=== PATIENT | female | born 1950 | race Caucasian/White ===

== ENCOUNTER → 2016-04-05 | Outpatient (CLI) | payer BC, OTHER ==
[~2016-04-05] MED LIST: ACYCLOVIR 400400 MG PO; AMBIEN 5 MG TABL5 M1 PO; APAP500 PO; ASPIR 8181 MG PO; ATIVAN0.5 MG PO; CELEBREX 200 M200 M1 PO; CELEBREX PO; COMBO PO; CYMBALTA60 MG PO; DEXAMETHASONE 44 M1 PO; ENOXAPARIN150 MG/11 SUBQ; FARYDAK10 MG PO; FENTANYL; FLEXERIL PO; FLONASE 0.05%50 MCG; HYDROCODON-ACE1 EAC5 PO; LASIX 20 MG TAB20 MG PO; LOPRESSOR25 PO; NEURONTIN 300300 M1 PO; ONDANSETRON HCL4 M2 PO; POTASSIUM20 PO; PROBIOTIC1 EAC1 PO; QVAR8.7 G1; VELCADE3.5 MG; VENTOLIN HFA INH8 GM INH; VITAMIN B-6100 MG PO; VITAMIN D2000 UNIT PO; ZYRTEC10 MG PO; [UNRECOGNIZED DRUG - REMARK] INTRADERM; iron
== END ==
LOC: RAD 12:51
DX: R05 Cough (principal)

== ENCOUNTER → 2016-12-04 | Outpatient (CLI) | payer OTHER ==
--- NOTE | ~2016-12-04 | SLE ---
[facility] [address] [place] [address] POLYSOMNOGRAPHY STUDY Name: MELINDA GARRETT Room #: [facility]#: [id number] Admission: 12/04/16 Attend Phys: Leyla Taylor MD Discharge: Date of : 51 Report #: [id number] THIS REPORT FOR: //name// CC: Leyla Burrell DATE OF SERVICE: 12/04/2016 This is a 66-year-old, height 5 feet 3 inches, weight 205 pounds. Usually goes to bed at 10:30-11:00, gets out of bed 7:30 to 9:00, does not feel refreshed. Describes herself as a restless sleeper. Positive snoring on back. COMMENTS: Total sleep time 301 minutes, sleep efficiency 73%. Sleep latency 32 minutes, REM latency 101 minutes. SLEEP STAGE: 1-4%, 2-85%, 3-1%, REM-10%. Central apnea 9, mixed apnea 0, obstructive apnea 1, hypopnea 5. Apnea-hypopnea index 3 events per sleep hour. Non-REM 3.1, REM 2.1 events per sleep hour. Respiratory effort related arousal 0 events per sleep hour. Supine AHI 3.6, left lateral 2.4, right lateral 1.8 events per sleep hour. Periodic limb movement with arousal index 1.8 events per sleep hour. Low oxygen saturation 77%, only spending 1.5 minutes less than 90%. IMPRESSION: 1. Apnea-hypopnea index 3 events per sleep hour with minimal nocturnal desaturation. 2. Snoring noted. 3. Daytime somnolence. 4. Periodic limb movement with arousal index of 1.8 events per sleep hour. 5. Premature ventricular contractions noted. SUGGESTIONS: 1. In addition to specific therapy, the patient should be cautioned regarding driving or operating dangerous machinery unless fully alert. The patient should be cautioned regarding the use of respiratory depressants. 2. Weight loss is recommended. 3. Further discussion regarding daytime somnolence is recommended. 4. Sleep hygiene measures are recommended. 5. If signs and symptoms not improved with therapy, further evaluation [facility] [address] [address] POLYSOMNOGRAPHY STUDY Name: MELINDA GARRETT Room #: [facility]#: [id number] Admission: 12/04/16 Attend Phys: Leyla Taylor MD Discharge: Date of : 51 Report #: [id number] recommended. 6. Please consider evaluation for arrhythmias. By: 58 23 Leyla Taylor MD /nt
== END ==
LOC: SLEEPLAB 08:58
DX: G47.33 Obstructive sleep apnea (adult) (pediatric) (principal)

== ENCOUNTER → 2017-02-01 | Outpatient (CLI) | payer OTHER | LOC: MRI 09:05 | DX: C90.02 Multiple myeloma in relapse (principal); M75.102 Unspecified rotator cuff tear or rupture of left shoulder, not specified as traumatic ==

== ENCOUNTER 2017-06-12 10:11 | Inpatient (IN) | payer OTHER ==
[~2017-06-12] VITALS: Ht 160 cm; Wt 93.9 kg
--- NOTE | ~2017-06-12 | HC ---
[facility] [place] [address] CONSULTATION Name: GERRYMELINDA Flip Room #: 363-P [facility] IN M.R.#: [id number] Admission: 06/12/17 Attend Phys: Tone Hunt DO Discharge: Date of : 51 Report #: [id number] THIS REPORT FOR: //name// CC: Sirisha Hunt DATE OF SERVICE: 06/13/2017 HISTORY OF PRESENT ILLNESS: The patient is a 66-year-old white female, admitted with increased shortness of breath. She has a prior history of myeloma, on active treatment with oral chemo and stem cell treatment. She was diagnosed with bilateral apical pneumonia. She has had acute respiratory failure with acute exacerbation of chronic obstructive pulmonary disease. She was noted to have some arthralgias and it sounds like these symptoms are improved. She had pain involving both lower extremities, her hands, and she thinks that it is improved in that regard. She notes she is very short of breath with limited activity. We are seeing her in rehabilitation medicine consultation. PAST MEDICAL HISTORY: Includes the myeloma, she has had prior pulmonary emboli. She has a history of fibromyalgia. She has chronic cancer related pain. The arthralgias are noted to be improved and she has a normal uric acid . MEDICATIONS: Please see the full medication listing. ALLERGIES: PENICILLIN G, SULFAMETHOXAZOLE, AND TRIMETHOPRIM. HABITS: No history of tobacco or alcohol abuse. 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 There is a daughter who lives in the area and works, but could be involved. REVIEW OF SYSTEMS: Did not offer any current complaints of chest pain. No abdominal discomfort. She does get short of breath with limited activity. She notes that the extremity pain is improved as noted above. PHYSICAL EXAMINATION: GENERAL: A 66-year-old overweight, pleasant white female, in no obvious distress. Alert, oriented, good historian. VITAL SIGNS: Temperature 97.7, pulse 84, respirations 22, blood pressure 154/74. NEUROLOGIC: Facies are symmetric. Functional range of motion of both upper extremities with strength of grade 4-/5. DTRs are trace to 1. Lower extremities, no focal calf swelling. No obvious inflammation of her knees or ankles. Tone appeared to be intact with strength of grade 4-/5. Tone is intact. [address] [address] CONSULTATION Name: MELINDA GARRETT Flip Room #: 363-P [facility] IN .R.#: [id number] Admission: 06/12/17 Attend Phys: Tone Hunt DO Discharge: Date of : 51 Report #: [id number] ASSESSMENT: A 66-year-old white female with following problems: 1. Acute exacerbation of chronic obstructive pulmonary disease, question healthcare-associated pneumonia. 2. Acute respiratory failure. 3. Arthralgias and arthritic complaints, improved (she is on dexamethasone). 4. Multiple myeloma. 5. History of pulmonary embolism. 6. History of fibromyalgia. 7. Chronic cancer related pain. PLAN: Therapy evaluations are underway. We will be glad to follow along with you regarding her rehab therapy needs. By: [id number] Michel Gracia MD /PMT
--- NOTE | ~2017-06-12 | HC ---
[facility] [place] [address] CONSULTATION Name: MELINDA GARRETT Room #: 363-P ADM IN M.R.#: [id number] Admission: 06/12/17 Attend Phys: Tone Hunt DO Discharge: Date of : 51 Report #: [id number] THIS REPORT FOR: //name// CC: Alf Hunt DATE OF SERVICE: 06/12/2017 ATTENDING PHYSICIAN: Tone Hunt DO. REASON FOR CONSULTATION: Possible pneumonia. HISTORY OF PRESENT ILLNESS: The patient is a 66-year-old white woman being treated for multiple myeloma. Apparently, chemotherapy has been changed on many occasions because of failure to control disease. The patient also recently hospitalized at [facility] for pulmonary embolism for which she is taking Pradaxa. The patient is mainly complaining of feeling short-winded and coughing up some yellowish expectoration. Denies having had fevers. Her other complaint is generalized joint aches and pains, particularly right knee, ankles and feet. The patient has a history of obstructive sleep apnea, but her latest studies was said to be fairly normal and she no longer requires using a home BiPAP. PAST MEDICAL HISTORY: Multiple myeloma, on oral chemotherapy. She has also received stem cell transplantation in 2009. History of gastroesophageal reflux. Arthritis of the neck and knees. Bilateral flat feet and pains on feet. C-sections x 3. Arthroscopic examination both knees. Right shoulder arthroscopy. Fibromyalgia. Previous episode of pneumonia requiring intubation for 9 days. Chronic fatigue. Anemia requiring frequent transfusions. DRUG ALLERGIES: SULFAMETHOXAZOLE, TRIMETHOPRIM, PENICILLIN AND WITH PENICILLIN, SHE EXPERIENCES RASH AND DIFFICULTY IN BREATHING. MEDICATIONS: At home, she is on treatment with fentanyl, dabigatran 150 mg p.o. b.i.d., which I believe she is not taking as she should. Ropinirole, pomalidomide, Cytoxan, dexamethasone, cetirizine, cyclobenzaprine, duloxetine, cholecalciferol, acetaminophen p.r.n., acyclovir chronic suppression, Lasix, gabapentin, hydrocodone, potassium chloride supplementation, pyridoxine, celecoxib, metoprolol and she was advised to stop the allopurinol. Here at the hospital, she has received treatment with Levaquin 750 mg IV x 1. She is getting vancomycin 1 g IV every 8 hours as well as aztreonam 1 g IV every 6 hours. She is also on treatment with dexamethasone 40 mg weekly, ropinirole, metoprolol, celecoxib, pyridoxine, Lactobacillus acidophilus, fluconazole propionate, KCl, cholecalciferol, dabigatran 150 mg b.i.d., zolpidem 5 [place] [address] CONSULTATION Name: MELINDA GARRETT Room #: 363-P [facility] IN M.R.#: [id number] Admission: 06/12/17 Attend Phys: Tone Hunt DO Discharge: Date of : 51 Report #: [id number] bedtime, acyclovir 400 mg b.i.d., duloxetine p.r.n., ondansetron p.r.n., hydrocodone, gabapentin, cyclobenzaprine, loratadine. 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 REVIEW OF SYSTEMS: As above. PHYSICAL EXAMINATION: GENERAL: Obese woman, dyspneic, afebrile, temperature 97.8, pulse 100, respirations 19, BP 160/82, O2 saturation 99% on 2 liters oxygen nasal cannula. HEENMT: Within range. NECK: Supple, no thyromegaly. BREASTS: Deferred. LUNGS: Rhonchi, crackles both lung wu. HEART: S1, S2. No gallop or murmur. CHEST: Revealed right infraclavicular Port-A-Cath. ABDOMEN: Soft. No masses or megaly. PELVIC AND RECTAL: Deferred. EXTREMITIES: Reveal small effusion right knee and some swelling of the proximal interphalangeal joints, right hand. NEUROLOGIC: Grossly within normal limits. LABORATORY DATA: Sodium 137, potassium 3.7, BUN 17, creatinine 0.7, calcium 8.3, albumin 2.5, total protein 6.8. NT-proBNP 476. Protime 10.4. D-dimer is 2.62. WBC 7400, hemoglobin 11.8 g/dL, platelets are 167,000. The white blood cell count differential revealed 92% segmented neutrophils. Blood cultures were obtained and obviously they are pending at the time of this dictation. Nasopharyngeal smear negative for influenza A and B. RADIOLOGY EVALUATION: Chest x-ray revealed faint nodular lesions both lungs, question inflammatory process. CT scan of the chest PE protocol revealed no evidence of pulmonary embolism, chronic lung changes, linear atelectasis, infiltrate lower lungs, though the radiologist report in the upper lung wu. There are multiple bony lesions in the vertebral bodies as well as broken ribs compatible with known multiple myeloma. ASSESSMENT: 1. Possible healthcare-associated pneumonia -- bronchitis. 2. Multiple myeloma, on chemotherapy. 3. Immunosuppressed host. 4. Hypoalbuminemia. 5. Arthralgias and arthritis, right knee. Rule out gout. 6. History of cholecystectomy, hysterectomy, bilateral knee arthroscopic examination. SUGGESTIONS: We will continue treatment with vancomycin a gram IV every 8 hours [facility] [address] [address] CONSULTATION Name: MELINDA GARRETT Room #: 363-P ADM IN M.R.#: [id number] Admission: 06/12/17 Attend Phys: Tone Hunt DO Discharge: Date of : 51 Report #: [id number] in view of penicillin allergy and Levaquin 750 mg IV daily. Obtain uric acid, ESR, CRP and procalcitonin. Sputum culture is in order. If the uric acid elevated, then the suspicions of acute gout may have to be entertained. Dr. Hunt, thank you for requesting my suggestions in the care of your patient. <ELECTRONICALLY SIGNED> By: Balta Dela Cruz MD 06/13/17 0952 1618 25 Balta Dela Cruz MD /nt
--- NOTE | ~2017-06-12 | HC ---
[facility] [place] [address] CONSULTATION Name: GERRYMELINDA Flip Room #: 363-P ADM IN M.R.#: [id number] Admission: 06/12/17 Attend Phys: Tone Hunt DO Discharge: Date of : 51 Report #: [id number] THIS REPORT FOR: //name// CC: Sirisha Anne MD DATE OF SERVICE: 06/12/2017 REFERRING PHYSICIAN: Dr. Hunt. REASON FOR REFERRAL: Dyspnea. HISTORY OF PRESENT ILLNESS: The patient is a 66-year-old white female with multiple myeloma, presents at Emergency Room with dyspnea. A pulmonary consultation was requested. The patient states that she was diagnosed with multiple myeloma for about 8 years. She has been followed by the Oncology Department at [facility]. She states that in the past, she has been diagnosed with respiratory problems. She has been treated for pneumonia in the past. She was in her usual state of health until 1 day prior to presentation, she started developing increasing dyspnea. She otherwise denies any recent febrile illness, chest pain, productive cough or hemoptysis. She has had several diagnostic workups while in the ER. A CT chest angiogram was performed. This revealed no evidence of pulmonary embolus; however, patchy bilateral linear infiltrates are seen, suggestive of atelectasis. There are larger areas suggests possible interstitial infiltrates. No pleural effusion is seen or pulmonary fibrosis. PAST MEDICAL HISTORY: Multiple myeloma diagnosed approximately 9 years ago, she has undergone stem cell transplantation in 2009, been followed at [facility]. She has a history of gastroesophageal reflux disease, fibromyalgia, degenerative joint disease with recent right foot surgery, history of pneumonia, respiratory failure in 01/2015 when she was hospitalized in [facility] and history of pulmonary embolus in 03/2015, anemia. PAST SURGICAL HISTORY: As mentioned above, x 3, bilateral knee arthroscopic surgery, right shoulder surgery, recent right foot surgery. ALLERGIES: PENICILLIN, which causes DYSPNEA and RASH; BACTRIM causes RASH. HOME MEDICATIONS: Reviewed. This include Pradaxa, Requip, Cytoxan, pomalidomide, dexamethasone, Zyrtec, Flexeril, Cymbalta, Zovirax, Lasix, [facility] [address] [place] [address] CONSULTATION Name: MELINDA GARRETT Flip Room #: 363-P [facility] IN [facility].#: [id number] Admission: 06/12/17 Attend Phys: Tone Hunt DO Discharge: Date of : 51 Report #: [id number] Neurontin, Tylenol, potassium supplements, Flonase, Ativan, Ambien, Ventolin HFA, Celebrex, Lopressor. FAMILY HISTORY: Noncontributory. SOCIAL HISTORY: She denies any tobacco or alcohol use. REVIEW OF SYSTEMS: As mentioned above, otherwise 10-point system review negative. PHYSICAL EXAMINATION: GENERAL: She is awake, alert, in moderate respiratory distress. VITAL SIGNS: Temperature is 98.2 degrees Fahrenheit, pulse is 100, respiratory rate is 20, blood pressure /82 mmHg, saturation is 95%. HEENT: Normocephalic, atraumatic. NECK: Supple, without lymphadenopathy or thyromegaly. CHEST: Breath sounds are decreased due to poor effort. Few scattered crackles. No wheezes. CARDIOVASCULAR: Normal S1, S2. There are no murmurs or gallop. There is no JVD, no carotid bruit. Pulses are 2+/4+ bilaterally. ABDOMEN: Soft, nontender, no organomegaly or masses felt. GENITOURINARY: Deferred. RECTAL: Deferred. EXTREMITIES: There is no edema, cyanosis or clubbing. LABORATORY DATA: CT chest angiogram as mentioned above, showing no evidence of pulmonary embolus, showing bilateral linear infiltrates suggestive of atelectasis. BNP is 470. Influenza A and B is negative. Procalcitonin level is normal at 0.06. EKG shows no acute changes. Electrolytes are normal. Liver function tests are normal. WBC is 7400, hemoglobin 11.8 without evidence of bandemia. IMPRESSION: 1. Progressive dyspnea in this 66-year-old white female with history of multiple myeloma. She is status post stem cell transplantation. CT chest angiogram showed no evidence of pulmonary embolus, but rather linear infiltrates, some suggestive of atelectasis. Procalcitonin level is normal. Etiology is unclear, but possibly related to inflammatory process due to underlying multiple myeloma. However, given immune compromised state, cannot rule out infectious causes including opportunistic organisms. Drug-induced interstitial lung disease is also considered. 2. Multiple myeloma diagnosed in 2008, undergoing stem cell transplantation 2009, recurrence, currently undergoing active chemotherapy. 3. Remote history of pulmonary embolus, currently on anticoagulation. 4. Fibromyalgia. 5. Restless leg syndrome. [facility] [address] [place] [address] CONSULTATION Name: MELINDA GARRETT Room #: 363-P ADM IN M.R.#: [id number] Admission: 06/12/17 Attend Phys: Tone Hunt DO Discharge: Date of : 51 Report #: [id number] 6. Chronic pain related to cancer. 7. Arthralgias. RECOMMENDATIONS: Agree with broad-spectrum antibiotics, wean O2 for saturation 90%. If infiltrates worsens despite antibiotic therapy, we will consider diagnostic bronchoscopy. DVT and GI prophylaxis has been addressed. Thank you for this consultation. <ELECTRONICALLY SIGNED> By: Vincent Johnson MD 06/13/17 1624 1202 1434 Vincent Johnson MD /nt
--- NOTE | ~2017-06-12 | HC ---
[facility] [place] [address] CONSULTATION Name: MELINDA GARRETT Room #: 363-P ADM IN M.R.#: [id number] Admission: 06/12/17 Attend Phys: Tone Hunt DO Discharge: Date of : 51 Report #: [id number] THIS REPORT FOR: //name// CC: Alf Poon REQUESTING PHYSICIAN: Dr. Tone Hunt. REASON FOR CONSULTATION: History of multiple myeloma. 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 She is admitted with about a 4-5 day history of increasing cough, shortness of air, wheezing and loose cough that is more than usual for her. She was worried that she might have recurrent pulmonary emboli, came to the hospital. Her D-dimer was elevated, a bit worsening. Her CT angio did not reveal any blood clots. It did raise a question of small bilateral upper lobe infiltrate and she has been seen by Infectious Disease, Dr. Balta Dela Cruz antibiotic management. REVIEW OF SYSTEMS: The patient says before this, again she had a slight cough, increased shortness of air, had not been on oxygen until again on Sunday, she was put back on it. She has had some arthralgias beginning about a week after the bisphosphonate was given to her for the first time, she is slowly resolving. It was progressive and involved her ankles and her knees, her hips and her hands, it is not resolving. She is not sure that she wishes to take it again. No skin rash. She does have a little bit of right calf pain, no new heartburn troubles. Does have chronic back pain, no new blood in her urine or stool. She reports everyone else at home has been fairly healthy. She has a who is present in the room today. PAST MEDICAL HISTORY: Notable for the IgG kappa multiple myeloma diagnosed in 2008. She was initially treated with thalidomide and dexamethasone. This was followed by Velcade, Revlimid and dexamethasone. She then had an autologous peripheral stem cell transplant x 2 followed by Revlimid maintenance. This was then followed by Velcade maintenance. When she progressed, she was on carfilzomib and dexamethasone. Then, later she was on pomalidomide and dexamethasone. She was then on panobinostat and Velcade and dexamethasone. The Velcade was held later on due to pulmonary toxicity. She has been on daratumumab antibody from 12/2015 until 11/2016 when she had progressive disease. At that time, she was begun on elotuzumab and dexamethasone. She then had Revlimid added a little bit after that. She had a bone marrow showing 35% [address] [address] CONSULTATION Name: MELINDA GARRETT Room #: 363-P [facility] IN ..#: [id number] Admission: 06/12/17 Attend Phys: Tone Hunt DO Discharge: Date of : 51 Report #: [id number] plasma cells in 02/2017, was begun on pomalidomide, Cytoxan and dexamethasone on 05/05/2017. She appears to have stable M protein and maybe slightly upper, maybe slightly down, but essentially stable. She also has a history of pulmonary emboli from about 2 years ago when she was at [facility]. Also, history of fibromyalgia, chronic cancer pain managed by Dr. Ruth Herrera in palliative care at [facility]. Also history of restless leg syndrome, also has a history of esophageal reflux, bilateral flat feet. She has had right shoulder arthroscopy. She has chronic fatigue, has had anemia in the past. ALLERGIES: HAVE INCLUDED TROUBLES WITH SULFAMETHOXAZOLE, TRIMETHOPRIM, AND PENICILLINS. 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 MEDICATIONS: Recently as an outpatient had included Diamox, acyclovir, albuterol, Pulmicort, Celebrex, cetirizine, vitamin D, vitamin B12, Flexeril, Pradaxa 150 mg twice daily, duloxetine, fentanyl 50 mcg patch, Flonase, Lasix, Neurontin 300 three times daily though often takes 300 twice daily, guaifenesin, lactobacillus, lorazepam, methylphenidate, metoprolol, Zofran, oxycodone, potassium chloride, vitamin B6, Requip, zolpidem. Medications here in the hospital currently include dexamethasone 40 mg weekly, celecoxib 20 mg daily, levofloxacin 100 daily, ropinirole 1 mg daily, metoprolol 25 daily, pyridoxine 100 mg daily, lactobacillus daily, fluticasone nasal spray daily, potassium chloride 20 mEq daily, vitamin D 1000 units daily, loratadine 10 mg daily, vancomycin 1000 mg q.8, acyclovir 400 b.i.d., Pradaxa 150 b.i.d., Ambien 5 mg at bedtime, gabapentin 300 mg at bedtime, duloxetine 30 mg b.i.d., ipratropium and albuterol respiratory therapy 3 mL every 4 hours while awake, aztreonam 1 gram q.6, methylprednisolone 80 mg hours, albuterol sulfate 2.5 mg respiratory q.4, Zofran p.r.n., lorazepam p.r.n., hydrocodone p.r.n., furosemide 40 daily, Tylenol p.r.n., cyclobenzaprine 10 mg at bedtime p.r.n. PHYSICAL EXAMINATION: GENERAL: The patient appears her stated age. VITAL SIGNS: Height is 5 feet 3 inches, 160 cm, weight 207 pounds, 93.9 kilograms. Blood pressure 158/82, O2 sat 95%, respirations 20, pulse 109, temperature 98.2. Slight fever last night at 99.9. MOOD: She is alert and pleasant. NEUROLOGIC: Mentating well. Speech pattern normal. Moving all extremities. EXTREMITIES: Without clubbing or cyanosis. There may be some trace edema. Note, she has SCDs on her lower extremities. LUNGS: Have some slight wheeze and rhonchi and slow movement of air. HEART: Appears slightly tachycardic. LYMPHATICS: No enlarged lymph nodes in the supraclavicular, cervical, axillary or inguinal region. ABDOMEN: Slightly obese. [facility] [address] [place] [address] CONSULTATION Name: MELINDA GARRETT Flip Room #: 363-P ADM IN M.R.#: [id number] Admission: 06/12/17 Attend Phys: Tone Hunt DO Discharge: Date of : 51 Report #: [id number] ASSESSMENT AND PLAN: 1. IgG kappa multiple myeloma. Recent lab shows fairly stable disease, too early to assess response or progression on current therapy, would hold Cytoxan and pomalidomide while she is in the hospital fighting infection. 2. Possible bronchitis/pneumonitis in an immunocompromised patient. We will defer antibiotics to Dr. Dela Cruz. Continue with aztreonam, vancomycin and other agents at this time and also prophylactic acyclovir, may need to consider silver stain tests for PCP. 3. Chronic pain. Continues with nonsteroidal and opiates. 4. History of pulmonary embolus, none at this time. Continue Pradaxa. 5. Bony disease may have had a mild intolerance-type reaction to recent bisphosphonate. She will discuss with Dr. Sharan Poon when she returns to the office whether to continue this or try different agent. 6. Mood disorder. Continue duloxetine. 7. Fibromyalgia, duloxetine, gabapentin and cyclobenzaprine. 8. Underlying lung disease, continues multiple inhalers and IV steroids. We will follow with you. <ELECTRONICALLY SIGNED> By: Vish Anne MD 06/14/17 0759 0847 1232 Vish Anne MD /nt
--- NOTE | ~2017-06-12 | EKG ---
[address] [place] [address] ELECTROCARDIOGRAM REPORT Name: MELINDA AGRRETT Room #: 363-P ADM IN M.R.#: [id number] Admission: 06/12/17 Attend Phys: Tone Hunt DO Discharge: Date of : 52 Report #: [id number] THIS REPORT FOR: //name// [facility] ED Test Date: 2017-06-12 Test Time: 10:50:02 Pat Name: MELINDA GARRETT Department: Room: 363 Gender: F General Machine Operator: MARY LOU : 1950 Requested By: Luiz Ramsey Order Number: [id number] MD: Yon Gonsalez Measurements Intervals [place] Rate: 90 P: 50 MT: 164 QRS: 6 QRSD: 85 T: 49 QT: 350 QTc: 429 Interpretive Statements Sinus rhythm Anteroseptal infarct, age indeterminate Baseline wander in lead(s) V1 Compared to ECG 03/02/2009 13:31:41 Septal Q waves are now present Sinus bradycardia no longer present Electronically Signed On 06-12-2017 17:05:21 CDT by Yon Gonsalez [email or web address] <ELECTRONICALLY SIGNED> By: Yon Gonsalez MD, LOCATED WITHIN [facility] 06/12/17 1705 1050 1050 Yon Gonsalez MD, LOCATED [facility]IN [facility] /EPI
[2017-06-12 10:26] VITALS: BP 160/82
[2017-06-12 11:05] LABS: ABSOLUTE NEUTROPHILS 6.8 thou/uL (1.4-8.2); BASOPHILS 0.2 % (0.0-2.0); EOSINOPHILS 1.5 % (0.0-3.0); HEMATOCRIT 35.3 % (37.0-47.0); HEMOGLOBIN 11.8 gm/dL (12.0-15.0); MCH 29.3 pg (26.0-34.0); MCHC 33.4 g/dL (28.0-37.0); MCV 87.8 fL (80.0-100.0); MONOCYTES 1.8 % (1.0-8.0); PLATELET COUNT 167 thou/uL (150-400); POLYS 92.5 % (36.0-66.0); RBC 4.02 mil/uL (4.20-5.00); RDW 17.2 % (10.5-14.5); WBC 7.4 thou/uL (4.0-11.0)
[2017-06-12] MEDS ORDERED: PRADAXA150 MG PO (11:05)
[2017-06-12] MEDS ORDERED: REQUIP1 MG PO (11:06)
[2017-06-12] MEDS ORDERED: POMALYST4 MG PO (11:07)
[2017-06-12] MEDS ORDERED: CYTOXAN PO (11:09)
[2017-06-12] MEDS ORDERED: DEXAMETHASONE 44 M1 PO ×2 (11:10→23:01)
[2017-06-12 11:12] LABS: ANION GAP 7 mmol/L (7-16); BUN 17 mg/dL (7-18); CALCIUM 8.3 mg/dL (8.5-10.1); CHLORIDE 103 mmol/L (98-107); CO2 27 mmol/L (21-32); CREATININE 0.7 mg/dL (0.6-1.0); GLUCOSE 98 mg/dL (74-106); POTASSIUM 3.7 mmol/L (3.5-5.1); SODIUM 137 mmol/L (136-145)
[2017-06-12 11:20] LABS: APTT 30.8 Seconds (24.5-32.8); D-DIMER 2.62 ug/mLFEU (0.19-0.50); PROTIME 10.4 Seconds (9.3-11.4)
[2017-06-12 11:21] LABS: ALBUMIN 2.5 g/dL (3.4-5.0); SGOT 13 U/L (15-37); SGPT 19 U/L (30-65); TOTAL BILIRUBIN 0.5 mg/dL (<0.1-1.0); TOTAL PROTEIN 6.8 g/dL (6.4-8.2); TROPONIN-I < 0.04 ng/mL (<0.06)
[2017-06-12 14:02] VITALS: BP 126/65
[2017-06-12 15:40] VITALS: BP 166/78
[2017-06-12 16:35] LABS: URIC ACID* 2.8 mg/dL (2.6-7.2)
[2017-06-12 19:45] VITALS: BP 147/74
[2017-06-12] MEDS ORDERED: CYMBALTA60 MG PO (23:03)
[2017-06-12] MEDS ORDERED: TOPROL XL25 MG PO (23:10)
[2017-06-12] MEDS ORDERED: ACETAZOLAMIDE250 M1 PO (23:19)
[2017-06-12] MEDS ORDERED: BUDESONIDE1 MG/2 ML INH (23:20)
[2017-06-12] MEDS ORDERED: VITAMIN B-12500 MCG PO (23:22)
[2017-06-12] MEDS ORDERED: STRIVERDI RESPIM4 GM (23:24)
[2017-06-12 23:55] VITALS: BP 124/73
[2017-06-13 04:00] VITALS: BP 131/70
[2017-06-13 06:33] LABS: ABSOLUTE NEUTROPHILS 7.7 thou/uL (1.4-8.2); HEMATOCRIT 34.3 % (37.0-47.0); HEMOGLOBIN 11.2 gm/dL (12.0-15.0); LYMPHOCYTES 2.5 % (24.0-44.0); MCH 28.7 pg (26.0-34.0); MCHC 32.8 g/dL (28.0-37.0); MCV 87.4 fL (80.0-100.0); MONOCYTES 0.7 % (1.0-8.0); PLATELET COUNT 168 thou/uL (150-400); POLYS 96.8 % (36.0-66.0); RBC 3.92 mil/uL (4.20-5.00); RDW 17.5 % (10.5-14.5)
[2017-06-13 06:51] LABS: CALCIUM 8.4 mg/dL (8.5-10.1); CREATININE 0.5 mg/dL (0.6-1.0); POTASSIUM 3.7 mmol/L (3.5-5.1)
[2017-06-13 08:39] VITALS: BP 158/82
[2017-06-13 11:10] VITALS: BP 154/77
[2017-06-13 16:10] VITALS: BP 153/79
[2017-06-13 19:55] VITALS: BP 135/84
[2017-06-14 04:44] VITALS: BP 154/85
[2017-06-14 05:47] LABS: HEMATOCRIT 32.2 % (37.0-47.0); HEMOGLOBIN 10.6 gm/dL (12.0-15.0); MCH 28.8 pg (26.0-34.0); MCHC 32.9 g/dL (28.0-37.0); MCV 87.5 fL (80.0-100.0); RBC 3.68 mil/uL (4.20-5.00); RDW 17.8 % (10.5-14.5); WBC 8.3 thou/uL (4.0-11.0)
[2017-06-14 06:04] LABS: CALCIUM 8.2 mg/dL (8.5-10.1); CREATININE 0.5 mg/dL (0.6-1.0); POTASSIUM 3.7 mmol/L (3.5-5.1)
[2017-06-14 07:43] VITALS: BP 150/87
[2017-06-14] MEDS ORDERED: SOLU-MEDRO125 MG/24 IV PUSH (13:36)
[2017-06-14] MEDS ORDERED: POTASSIUM20 PO (13:36)
[2017-06-14] MEDS ORDERED: DUONEB 2.5-0.5 M3 ML INH (13:36)
[2017-06-14] MEDS ORDERED: AZITHROMYCIN 2250 MG PO (13:36)
[2017-06-14] MEDS ORDERED: REQUIP 1 MG TABL1 M1 PO (13:36)
== END 2017-06-14 16:31 | DRG 871 ==
LOC: ER 10:11 → 3W 13:34 → EROBS 13:34 → 3W 15:50
PROVIDERS: Emergency Medicine; Family Medicine; Internal Medicine Infectious Disease; Internal Medicine Pulmonary Disease
DX: A41.9 Sepsis, unspecified organism (principal); J96.01 Acute respiratory failure with hypoxia; J15.6 Pneumonia due to other Gram-negative bacteria; C90.00 Multiple myeloma not having achieved remission; J44.1 Chronic obstructive pulmonary disease with (acute) exacerbation; J98.11 Atelectasis; J45.901 Unspecified asthma with (acute) exacerbation; Z94.84 Stem cells transplant status; J44.0 Chronic obstructive pulmonary disease with (acute) lower respiratory infection; K21.9 Gastro-esophageal reflux disease without esophagitis; M19.90 Unspecified osteoarthritis, unspecified site; E88.09 Other disorders of plasma-protein metabolism, not elsewhere classified; M17.11 Unilateral primary osteoarthritis, right knee; G89.29 Other chronic pain; G25.81 Restless legs syndrome; F39 Unspecified mood [affective] disorder; Z86.711 Personal history of pulmonary embolism; D64.9 Anemia, unspecified; Z88.0 Allergy status to penicillin; Z88.2 Allergy status to sulfonamides; Z88.8 Allergy status to other drugs, medicaments and biological substances; Z90.49 Acquired absence of other specified parts of digestive tract; Z90.710 Acquired absence of both cervix and uterus; Z79.01 Long term (current) use of anticoagulants; Z79.52 Long term (current) use of systemic steroids
CPT/HCPCS: 10879

== ENCOUNTER 2017-06-14 11:01 | Inpatient (IN) | payer OTHER ==
[~2017-06-14] VITALS: Ht 152.4 cm; Wt 91.6 kg
--- NOTE | ~2017-06-14 | HC ---
[facility] [place] [address] CONSULTATION Name: MELINDA GARRETT Room #: 516-1 [facility] IN M.R.#: [id number] Admission: 06/14/17 Attend Phys: Michel Gracia MD Discharge: 06/20/17 Date of : 52 Report #: [id number] THIS REPORT FOR: //name// CC: Sirisha Gracia DATE OF SERVICE: 06/16/2017 ATTENDING PHYSICIAN: Michel Gracia MD SLITTER OPERATOR: Mat Smart, PhD CLINICAL PRESENTATION: The patient is a 66-year-old female admitted to [facility] Rehabilitation Unit for comprehensive inpatient rehabilitation program to improve functional mobility, activities of daily living and self-care and mental status secondary to deficits from medical complexity and generalized debility. Her assessment on admission includes pulmonary rehabilitation, acute hypoxic respiratory failure, bilateral pulmonary infiltrates, asthma exacerbation, multiple myeloma with autologous peripheral stem cell transplantation x 2, obstructive sleep apnea, pulmonary embolism in 2015 and on anticoagulation, restless leg syndrome, fibromyalgia, chronic pain secondary to multiple myeloma and arthritis with recent right foot surgery. A complete description of her medical condition and history can be found in her medical records. Neuropsychological consultation was requested to provide assistance in the assessment of cognitive and emotional status and to provide recommendations and services. Prior to this most recent hospitalization, she was living independently with the assistance of her in their home. The patient has 4 children. She reports 2 children are estranged, but 2 are supportive. She is from a family with 2 brothers and a sister. The patient is retired from a career as a nurse. TECHNIQUES UTILIZED: Clinical interview, review of medical records, staff consultation and behavioral observation, Mini-mental status exam 2 standard version, clock drawing. EXAMINATION FINDINGS: The patient was alert and cooperative with the assessment. She accurately described events surrounding her admission. There is no evidence of aphasia. Her thoughts were logical and goal oriented. There is no evidence of auditory or visual hallucinations. The patient appeared restless and fidgety. She was very tearful when describing the recent of a friend. She heard of the friend's today. The patient also reports situational stress with family and difficulty in the relationship with her mother. The patient reports subjective feelings of anxiety and depression. Deficits in [facility] [address] [place] [address] CONSULTATION Name: MELINDA GARRETT Room #: 516-1 [facility] IN [facility]#: [id number] Admission: 06/14/17 Attend Phys: Michel Graica MD Discharge: 06/20/17 Date of : 52 Report #: [id number] memory, word finding and inconsistent sleep are reported. Her appetite had been poor, but she reports that as improving. The patient has been undergoing chemotherapy and she indicates having difficulty in cognition that she feels associated with chemotherapy. Her performance on the MMSE 2 brief version was within normal limits with a raw score of 15/16. The patient was 2/3 for memory of 3 items after a brief distraction and time delay. She has 5/5 for orientation to time and place. Her performance on the MMSE 2 standard version, declined to a raw score 25/30, which is a T score at 37 and percentile rank at 10. She was 3/5 for serial 7's. The patient was unable to accurately copy a simple geometric design. Naming, repetition and auditory comprehension are within normal limits. Performance on clock drawing suggests subtle visual spatial disorganization and perseveration which can indicate executive dysfunction. The patient further presenting with mild deficits in cognition. Likely difficulty in memory and sustained concentration and attention, can be affected by both medications that are sedating as well as ongoing depression and anxiety. DIAGNOSTIC IMPRESSION: Mild neurocognitive disorder, due to medical etiology, without behavior disorde Unspecified depressive disorder with anxiety. RECOMMENDATIONS: The patient will benefit from continued psychological services following discharge. During her inpatient rehabilitation program, she will benefit from the use of relaxation techniques and opportunities for control of her environment to assist in general adjustment. Verbal praise and complements about participation in therapy and helping the patient to identify strengths and resources that can be utilized to assist in compensation for deficits. She was tearful when describing the of her friend. Allowing the patient to discuss and experience the emotions associated with her friend's loss will also help overall adjustment, limits may need to be imposed so that it does not interfere with specific rehabilitation goals. Thank you very much for allowing me to provide the consultation on this patient. <ELECTRONICALLY SIGNED> By: Mat Smart, PhD 06/24/17 1602 1438 1518 Mat Smart, PhD /nt
--- NOTE | ~2017-06-14 | 2DMMODE ---
[facility] [address] [facility] [facility] [place] [address] 2 D/M-MODE ECHOCARDIOGRAM Name: MELINDA GARRETT Room #: 516-1 ADM IN M.R.#: [id number] Admission: 06/14/17 Attend Phys: Michel Gracia, Discharge: Date of : 52 Date of Service: 06/18/17 1121 Report #: [id number] THIS REPORT FOR: //name// APPROVED REPORT Study performed: 06/18/2017 10:49:30 EXAM: Comprehensive 2D, Doppler, and color-flow Echocardiogram Patient Location: Echo lab Room #: 516 Status: routine BSA: 2.01 HR: 92 bpm BP: 138/82 mmHg Rhythm: NSR Other Information Study Quality: Good Indications Short of breath, cardiomyopathy. 2D Dimensions RVDd: 33.03 mm LVEF(%): 57.88 (>50%) IVSd: 10.91 (7-11mm) LVOT Diam: 21.40 (18-24mm) LVDd: 46.56 mm PWd: 9.24 (7-11mm) Ascending Ao: 34.14 (22-36mm) LVDs: 32.39 (25-40mm) Aortic Root: 35.25 mm Ibrahim's LVEF: 57.88 % Volumes Left Atrial Volume (Systole) Single Plane 4CH: 39.08 mL Single Plane 2CH: 55.89 mL LA ESV Index: 24.00 mL/m2 Aortic Valve AoV Peak Amol.: 1.42 m/s AO Peak Gr.: 8.11 mmHg LVOT Max P.11 mmHg LVOT Max V: 1.01 m/s ARBEN Vmax: 2.56 cm2 Mitral Valve E/A Ratio: 0.8 MV Decel. Time: 174.10 ms [facility] [place] [address] 2 D/M-MODE ECHOCARDIOGRAM Name: MELINDA GARRETT Room #: 516-1 ADM IN M.R.#: [id number] Admission: 06/14/17 Attend Phys: Michel Gracia, Discharge: Date of : 52 Date of Service: 06/18/17 1121 Report #: [id number] MV E Max Amol.: 0.60 m/s MV A Amol.: 0.80 m/s MV PHT: 50.49 ms IVRT: 92.27 ms Pulmonary Valve PV Peak Amol.: 1.43 m/s PV Peak Gr.: 8.22 mmHg Pulmonary Vein P Vein S: 0.75 m/s P Vein D: 0.52 m/s P Vein S/D Ratio: 1.44 Tricuspid Valve TR Peak Amol.: 2.55 m/s RAP Estimate: 5.00 mmHg TR Peak Gr.: 26.05 mmHg PA Pressure: 31.00 mmHg Left Ventricle The left ventricle is normal size. There is normal left ventricular wall thickness. Left ventricular systolic function is normal. LVEF is 55%. Mild diastolic dysfunction is present (impaired relaxation pattern). Right Ventricle The right ventricle is normal size. The right ventricular systolic function is normal. Atria The left atrium size is normal. The right atrium size is normal. Aortic Valve The aortic valve is normal in structure. No aortic regurgitation is present. There is no aortic valvular stenosis. Mitral Valve The mitral valve is normal in structure. Trace mitral regurgitation. Tricuspid Valve The tricuspid valve is normal in structure. Trace to mild tricuspid regurgitation. Estimated PAP is 30-35mmHg. Pulmonic Valve The pulmonary valve is normal in structure[place] [address] 2 D/M-MODE ECHOCARDIOGRAM Name: MELINDA GARRETT Room #: 516-1 ADM IN .R.#: [id number] Admission: 06/14/17 Attend Phys: Michel Gracia, Discharge: Date of : 52 Date of Service: 06/18/17 1121 Report #: [id number] regurgitation. Great Vessels The aortic root is normal in size. The ascending aorta is normal in size. IVC is normal in size and collapses >50% with inspiration. Pericardium There is no pericardial effusion. <Conclusion> The left ventricle is normal size. LVEF is 55%. The aortic valve is normal in structure. The mitral valve is normal in structure. Trace mitral regurgitation. The tricuspid valve is normal in structure. Trace to mild tricuspid regurgitation. Estimated PAP is 30-35mmHg. The pulmonary valve is normal in structure. Mild pulmonic regurgitation. There is no pericardial effusion. <ELECTRONICALLY SIGNED> By: Eduar Clements MD 06/18/17 1121 1121 112 Eduar Clements MD /INF
--- NOTE | ~2017-06-14 | H ---
[facility] [place] [address] HISTORY AND PHYSICAL Name: GERRYMELINDA J Room #: 516-1 [facility] IN M.R.#: [id number] Admission: 06/14/17 Attend Phys: Michel Gracia MD Discharge: 06/20/17 Date of : 52 Report #: [id number] THIS REPORT FOR: //name// CC: Sirisha Gracia DATE OF SERVICE: 06/15/2017 HISTORY AND PHYSICAL/POST-ADMISSION PHYSICIAN EVALUATION HISTORY OF PRESENT ILLNESS: The patient is a 66-year-old white female originally admitted with increased shortness of breath. She has a prior history of myeloma, was on active treatment with oral chemotherapy and stem cell treatment. She was diagnosed with bilateral apical pneumonia. She has had acute respiratory failure with acute exacerbation of chronic obstructive pulmonary disease. She was noted to have some off arthralgias, which were overall improved. She was having pain involving her lower extremities, in her hands and she thought that was improved. She has been placed on corticosteroids with her pulmonary issues. She has medical complexity with generalized debilitation. Decreased endurance and has the pulmonary infiltrates with acute hypoxic respiratory failure and asthma exacerbation complicating obstructive sleep apnea. She has not been admitted for acute in-hospital inpatient rehabilitation. PAST MEDICAL HISTORY: Includes multiple myeloma with chronic pain, arthritis with recent right foot surgery, restless leg syndrome, fibromyalgia, pulmonary embolism in 2015, for which she has been on anticoagulation. MEDICATIONS: Please see the full medication listing. Each of these was individually reconciled that includes vitamins, herbals, and supplements. ALLERGIES: PENICILLIN G, SULFAMETHOXAZOLE, AND TRIMETHOPRIM. HABITS: No history of tobacco or alcohol abuse. SOCIAL HISTORY: Lives in a house, 2 steps in, ranch style with who works during the day. There is a daughter that lives in the area and works, but could be involved. REVIEW OF SYSTEMS: No current complaints of chest pain, shortness of breath, abdominal discomfort. She does get short of breath with limited activity. PHYSICAL EXAMINATION: GENERAL: A 66-year-old overweight, pleasant white female in no obvious distress. Note, she did not sleep that well and thinks it may be due to steroids. [facility] [address] [place] [address] HISTORY AND PHYSICAL Name: MELINDA GARRETT Room #: 516-1 [facility] IN [facility]#: [id number] Admission: 06/14/17 Attend Phys: Michel Gracia MD Discharge: 06/20/17 Date of : 52 Report #: [id number] VITAL SIGNS: Temperature 98.4, pulse 83, respirations 18, blood pressure is 160/78. HEENT: Appeared to be benign. She is on 2 liters nasal cannula, appears to be a reasonable historian. Facies are symmetric. CHEST: Decreased diffuse breath sounds. CARDIOVASCULAR: Sounded regular rate and rhythm. ABDOMEN: Obese, bowel sounds positive, nontender. GENITOURINARY AND RECTAL: Deferred. EXTREMITIES: Functional range of motion of both upper extremities with strength grade 4-/5. DTRs are trace to 1. Lower extremities, no focal calf swelling. No obvious inflammation of her knees or her ankles. Tone appeared to be intact with strength grade 4-/5. She is needing assistance with basic functional mobility skills. ASSESSMENT: A 66-year-old white female with the following problem list: 1. Pulmonary rehabilitation. 2. Medical complexity with generalized debilitation. 3. Acute hypoxic respiratory failure. 4. Bilateral pulmonary infiltrates. 5. Asthma exacerbation. 6. Multiple myeloma with autologous peripheral stem cell transplantation x 2. 7. Obstructive sleep apnea. 8. Pulmonary embolism, 2015, on anticoagulation. 9. Restless leg syndrome. 10. Fibromyalgia. 11. Chronic pain related to the multiple myeloma. 12. Arthritis with recent right foot surgery. PLAN: The patient is admitted for acute in-hospital inpatient rehabilitation. From a post-admission physician evaluation perspective, there are no relevant changes since the preadmission screening. Please see the above review of prior and current medical and functional conditions and comorbidities. Please see the patient's previous and current functional status. As far as risk of complication, she has multiple medical comorbidities as noted above. Initial plan of care involves the interdisciplinary acute inpatient rehabilitation program with goal of maximizing her functional independence, so that she can hopefully return back to her prior living situation. Measurable functional goals would be for her to become modified independent with transfers, mobility and ADLs and improving her endurance that she can return back to the home setting. Hopefully, we can wean her off the O2. Prognosis is reasonably good with estimated length of stay probably at least 7-10 days, pending progress. Potential barriers would include her multiple medical comorbidities and decreased functional status. The patient meets diagnostic criteria for an acute in-hospital inpatient rehabilitation stay. She meets medical necessity criteria. We will have the [address] [address] HISTORY AND PHYSICAL Name: MELINDA GARRETT Room #: 516-1 [facility] IN M.R.#: [id number] Admission: 06/14/17 Attend Phys: Michel Gracia MD Discharge: 06/20/17 Date of : 52 Report #: [id number] multiple senior product consultant physicians continue to follow. She does have the tolerance for therapies and has appropriate discharge goals back to the home setting. Again, we will have the multiple medical consultants continue to follow with her multiple medical comorbidities. <ELECTRONICALLY SIGNED> By: Michel Gracia MD 06/22/17 1408 0832 0850 Michel Gracia MD /[facility]
--- NOTE | ~2017-06-14 | HC ---
[facility] [place] [address] CONSULTATION Name: MELINDA GARRETT Room #: 516-1 ADM IN M.R.#: [id number] Admission: 06/14/17 Attend Phys: Michel Gracia MD Discharge: Date of : 52 Report #: [id number] THIS REPORT FOR: //name// CC: Alf Smart PhD REASON FOR CONSULTATION: Multiple myeloma. HISTORY OF PRESENT ILLNESS: The patient is a very pleasant 66-year-old female with a history of IgG kappa multiple myeloma from about 2008. Please see the prior dictated note of about 06/12/2017 for past history of multiple myeloma to include multiple agents. Note that in the past this included originally treated ____ thalidomide and dexamethasone followed by Velcade, Revlimid and dexamethasone. She then had autologous peripheral stem cell transplant x 2 with Revlimid maintenance. She then had Velcade maintenance. When she progressed, she was on carfilzomib and dexamethasone. She was then on pomalidomide and dexamethasone. She was then on panobinostat, Velcade and dexamethasone. The Velcade was later held due to pulmonary toxicity. She has been on daratumumab from 12/2015 until 11/2016. She had progressive disease and was begun on elotuzumab and dexamethasone. She then had Revlimid added a little bit later. She then had a bone marrow showing 35% plasma cells in 02/2017 and began on pomalidomide, Cytoxan and dexamethasone on 05/05/2017. She also has a history of pulmonary embolism two years ago, history of fibromyalgia and chronic cancer pain managed by Dr. Ruth Herrera, history of restless legs, esophageal reflux, bilateral flat feet, right shoulder arthroscopy and chronic fatigue. ALLERGIES: INCLUDED SULFAMETHOXAZOLE, TRIMETHOPRIM AND PENICILLINS. 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 MEDICATIONS: At this time in the hospital currently include dexamethasone 40 mg weekly, guaifenesin 600 b.i.d., pantoprazole 20 daily, docusate 100 b.i.d., methylprednisolone 40 b.i.d., furosemide 20 daily, metoprolol 25 daily, fluticasone 2 sprays each nose daily, pyridoxine 100 mg daily, potassium 20 mEq daily, lactobacillus 1 cap daily, duloxetine 30 daily, vitamin D 1000 units daily, budesonide 1 mg respiratory therapy b.i.d., ipratropium-albuterol b.i.d., morphine p.r.n., aztreonam q. 6, gabapentin 300 t.i.d., acyclovir 400 b.i.d., duloxetine 60 mg at bedtime, zolpidem 10 mg at bedtime, dabigatran 150 b.i.d., [address] [address] CONSULTATION Name: MELINDA GARRETT Room #: 516-1 ADM IN ..#: [id number] Admission: 06/14/17 Attend Phys: Michel Gracia MD Discharge: Date of : 52 Report #: [id number] celecoxib 200 b.i.d., Zofran p.r.n., lorazepam p.r.n., hydrocodone p.r.n., ropinirole 1 mg daily, loratadine 10 mg daily, cyclobenzaprine 10 mg ____, Tylenol p.r.n., fentanyl 50 mcg patch every 72 hours, magnesium hydroxide 10 mL daily, bisacodyl as needed, sennosides 4 tabs daily, Zithromax is on 500 mg daily to be held after complete after 15 doses. REVIEW OF SYSTEMS: The patient currently denies fevers or chills. Does have fatigue. Does have a slight cough, which has improved. This is her first day without oxygen. No bleeding difficulties. Bowels and bladder function well. PHYSICAL EXAMINATION: GENERAL: The patient appears her stated age. VITAL SIGNS: Blood pressure is 152/78, O2 sat 94%, respirations 18 and temperature 97.6. As mentioned, she is on room air. Height is 5 feet 3 inches, weight is 238 pounds that is also 152.4 cm and 108 kilograms. MOOD: She is alert and pleasant. NEUROLOGIC: Moving all extremities, thought and speech pattern are normal. Oropharynx is clear. LUNGS: Clear. There is some very soft rhonchi that clear with cough. LYMPHATICS: No enlarged lymph nodes. ABDOMEN: Slightly obese. No organomegaly. EXTREMITIES: Without clubbing or cyanosis. LABORATORY DATA: Recent lab includes BUN of 28 and creatinine 0.6. Transaminases normal. Albumin 2.5. Coags normal. White count was 6.9, hemoglobin 10.7, platelets 242, 68% seg neutrophils, 1% bands, 14% lymphocytes and 16% monocytes. MICROBIOLOGY DATA: Here on this admit from nose, blood and sputum. Nose and blood have been negative. ASSESSMENT AND PLAN: 1. IgG multiple myeloma, currently on current therapy. We will defer additional chain evaluation to Dr. Poon. As an outpatient looks like the labs have been stable, some up and some down since initiating this regimen. Continue weekly steroids. 2. Respiratory illness. It is unclear how much of this could be related to bone medication versus viral illness versus ____. It appears to be responding to continues antibiotics and steroids. 3. History of PE 2 years ago, Pradaxa. 4. History of fibromyalgia ____. 5. Chronic pain, fentanyl, other opiates and muscle relaxers. 6. Restless legs, ropinirole. [facility] [address] [place] [address] CONSULTATION Name: GERRYMELINDA J Room #: 516-1 [facility] IN ..#: [id number] Admission: 06/14/17 Attend Phys: Michel Gracia MD Discharge: Date of : 52 Report #: [id number] 7. Arthralgia, celecoxib will be available. The patient will need to follow up with Dr. Poon when done. <ELECTRONICALLY SIGNED> By: Vish Anne MD 06/19/17 1842 0814 0923 Vish Anne MD /nt
--- NOTE | ~2017-06-14 | PLAN ---
[facility] [place] [address] REHAB UNIT PLAN OF CARE Name: GERRYMELINDA J Room #: 516-1 DIS IN M.R.#: [id number] Admission: 06/14/17 Attend Phys: Michel Gracia MD Discharge: 06/20/17 Date of : 52 Report #: [id number] THIS REPORT FOR: //name// CC: Sirisha Gracia DATE OF SERVICE: 06/16/2017 PROGRESS NOTE AND OVERALL PLAN OF CARE SUBJECTIVE: The patient was seen earlier. She was sleepy, in no distress. Temperature 36.5, pulse 80, respirations 18, blood pressure 156/65. She has been working in therapies. Tends to get short of breath with activity. She is on nasal prong O2, needing 3 liters. Transfers have been min assist. Gait has been min assist with a front-wheeled walker on her feet. Lower body dressing has been contact guard. ASSESSMENT: 1. Pulmonary rehabilitation. 2. Medical complexity with generalized debilitation. 3. Acute hypoxic respiratory failure. 4. Bilateral pulmonary infiltrates. 5. Asthma exacerbation. 6. Multiple myeloma with autologous peripheral stem cell transplantation x 2. 7. Obstructive sleep apnea. 8. Pulmonary embolism 2015, on anticoagulation. 9. Restless leg syndrome. 10. Fibromyalgia. 11. Chronic pain related to the multiple myeloma. 12. Arthritis with recent right foot surgery. PLAN: The overall plan of care is based on the preadmission screen, post-admission physician evaluation and information garnered from therapy assessments. 1. Estimated length of stay is probably at least 10 days pending progress. 2. Medical prognosis is reasonably good. 3. Anticipated interventions includes the interdisciplinary acute inpatient rehabilitation program with the goal of maximizing the patient's functional independence, so that she can return back to the home setting. She will have PT, OT, rehab nursing involved with medication management, skin care prophylaxis, bowel and bladder issues and nursing education. The interdisciplinary team will be involved as well as the incident response consultant physicians with her medical comorbidities. 4. Anticipated functional outcomes would be for her to become modified independent at least at the walker level. 5. Discharge destination would be back home with her . [address] [address] REHAB UNIT PLAN OF CARE Name: MELINDA GARRETT Room #: 516-1 [facility] IN .R.#: [id number] Admission: 06/14/17 Attend Phys: Michel Gracia MD Discharge: 06/20/17 Date of : 52 Report #: [id number] 6. Expected therapy by discipline includes PT and OT 1-1/2 hours per day each five days a week throughout the duration of the acute inpatient rehabilitation stay. <ELECTRONICALLY SIGNED> By: Michel Gracia MD 06/22/17 1408 0751 1046 Michel Gracia MD /PMT
[~2017-06-14 11:01] MED LIST changes: +ACETAZOLAMIDE250 M1 PO; +BUDESONIDE1 MG/2 ML INH; +CYTOXAN PO; +POMALYST4 MG PO; +PRADAXA150 MG PO; +REQUIP1 MG PO; +STRIVERDI RESPIM4 GM; +TOPROL XL25 MG PO; +VITAMIN B-12500 MCG PO
[2017-06-14] MEDS ORDERED: AZITHROMYCIN 2250 MG PO (13:36)
[2017-06-14] MEDS ORDERED: SOLU-MEDRO125 MG/24 IV PUSH (13:36)
[2017-06-14] MEDS ORDERED: DUONEB 2.5-0.5 M3 ML INH (13:36)
[2017-06-14] MEDS ORDERED: POTASSIUM20 PO (13:36)
[2017-06-14] MEDS ORDERED: REQUIP 1 MG TABL1 M1 PO (13:36)
[2017-06-14 17:42] VITALS: BP 154/79
[2017-06-14 20:09] VITALS: BP 160/78
[2017-06-14 23:47] LABS: BE(vivo) -2.7 mmol/L (-2 to +3); HCO3 20.5 mmol/L (22.0-26.0); PCO2 30.6 mmHg (35.0-45.0); PO2 64.9 mmHg (80.0-100.0); pH 7.443 (7.360-7.450); sO2 93.8 % (92.0-98.0)
[2017-06-15 06:47] LABS: HEMATOCRIT 32.4 % (37.0-47.0); HEMOGLOBIN 10.9 gm/dL (12.0-15.0); MCH 29.1 pg (26.0-34.0); MCHC 33.7 g/dL (28.0-37.0); MCV 86.4 fL (80.0-100.0); RBC 3.75 mil/uL (4.20-5.00); RDW 17.4 % (10.5-14.5); WBC 10.5 thou/uL (4.0-11.0)
[2017-06-15 06:56] LABS: CALCIUM 8.1 mg/dL (8.5-10.1); CREATININE 0.6 mg/dL (0.6-1.0); POTASSIUM 3.7 mmol/L (3.5-5.1)
[2017-06-15 08:00] VITALS: BP 127/83
[2017-06-15 20:38] VITALS: BP 156/65
[2017-06-16 08:31] VITALS: BP 164/85
[2017-06-16 20:04] VITALS: BP 156/88
[2017-06-17 04:29] LABS: HEMATOCRIT 32.1 % (37.0-47.0); HEMOGLOBIN 10.7 gm/dL (12.0-15.0); MCH 29.1 pg (26.0-34.0); MCHC 33.3 g/dL (28.0-37.0); MCV 87.4 fL (80.0-100.0); PLATELET COUNT 242 thou/uL (150-400); RBC 3.68 mil/uL (4.20-5.00); RDW 17.3 % (10.5-14.5); WBC 6.9 thou/uL (4.0-11.0)
[2017-06-17 04:43] LABS: CALCIUM 7.7 mg/dL (8.5-10.1); CREATININE 0.6 mg/dL (0.6-1.0); MAGNESIUM 2.5 mg/dL (1.8-2.4); POTASSIUM 4.2 mmol/L (3.5-5.1)
[2017-06-17 05:36] LABS: ABSOLUTE NEUTROPHILS 4.8 thou/uL (1.4-8.2); ANISOCYTOSIS 1+; ATYPICAL LYMPHS 1 %; LARGE PLATELETS FEW
[2017-06-17 05:37] LABS: POLYCHROMASIA 1+
[2017-06-17 08:00] VITALS: BP 143/77
[2017-06-17 19:55] VITALS: BP 152/78
[2017-06-18 07:45] VITALS: BP 138/82
[2017-06-18] MEDS ORDERED: ZYRTEC10 MG PO (10:29)
[2017-06-18 19:25] VITALS: BP 147/79
[2017-06-19 06:21] LABS: HEMATOCRIT 31.6 % (37.0-47.0); HEMOGLOBIN 10.5 gm/dL (12.0-15.0); MCH 29.1 pg (26.0-34.0); MCHC 33.1 g/dL (28.0-37.0); MCV 87.8 fL (80.0-100.0); PLATELET COUNT 239 thou/uL (150-400); RBC 3.59 mil/uL (4.20-5.00); RDW 17.2 % (10.5-14.5); WBC 8.1 thou/uL (4.0-11.0)
[2017-06-19 06:38] LABS: CALCIUM 8.9 mg/dL (8.5-10.1); CREATININE 0.6 mg/dL (0.6-1.0); POTASSIUM 4.3 mmol/L (3.5-5.1)
[2017-06-19 07:33] LABS: ABSOLUTE NEUTROPHILS 4.8 thou/uL (1.4-8.2)
[2017-06-19 07:34] LABS: ANISOCYTOSIS 1+; POLYCHROMASIA OCCASIONAL
[2017-06-19 09:45] VITALS: BP 141/66
[2017-06-19] MEDS ORDERED: NEBULIZER (15:46)
[2017-06-19 16:32] VITALS: BP 141/66
[2017-06-19 20:52] VITALS: BP 139/75
[2017-06-20 07:10] VITALS: BP 144/83
[2017-06-20] MEDS ORDERED: MUCINEX600 MG PO (07:40)
[2017-06-20] MEDS ORDERED: MEDROLDOSEPACK PO (11:44)
[2017-06-20] MEDS ORDERED: DEXAMETHASONE 44 M1 PO (11:44)
[2017-06-20 13:26] VITALS: BP 141/66
== END 2017-06-20 13:30 | disposition home health service (06) | DRG 947 ==
PROVIDERS: Nurse Practitioner; Nurse Practitioner Family; Physical Medicine & Rehabilitation
DX: R53.81 Other malaise (principal); G62.9 Polyneuropathy, unspecified; J96.01 Acute respiratory failure with hypoxia; J18.9 Pneumonia, unspecified organism; J45.901 Unspecified asthma with (acute) exacerbation; C90.00 Multiple myeloma not having achieved remission; J44.1 Chronic obstructive pulmonary disease with (acute) exacerbation; E87.2 Acidosis; G47.33 Obstructive sleep apnea (adult) (pediatric); G25.81 Restless legs syndrome; M79.7 Fibromyalgia; G89.29 Other chronic pain; M19.90 Unspecified osteoarthritis, unspecified site; G31.84 Mild cognitive impairment of uncertain or unknown etiology; F41.8 Other specified anxiety disorders; K21.9 Gastro-esophageal reflux disease without esophagitis; M25.50 Pain in unspecified joint; D64.9 Anemia, unspecified; E55.9 Vitamin D deficiency, unspecified; Z86.711 Personal history of pulmonary embolism; Z79.01 Long term (current) use of anticoagulants; Z88.2 Allergy status to sulfonamides; Z88.0 Allergy status to penicillin; Z88.8 Allergy status to other drugs, medicaments and biological substances
CPT/HCPCS: 10112

== ENCOUNTER → 2017-07-26 | Outpatient (CLI) | payer OTHER ==
[~2017-07-26] MED LIST changes: +AZITHROMYCIN 2250 MG PO; +DUONEB 2.5-0.5 M3 ML INH; +MEDROLDOSEPACK PO; +MUCINEX600 MG PO; +NEBULIZER; +REQUIP 1 MG TABL1 M1 PO; +SOLU-MEDRO125 MG/24 IV PUSH
== END ==
LOC: RAD 15:02
DX: R06.00 Dyspnea, unspecified (principal); M25.512 Pain in left shoulder; C90.00 Multiple myeloma not having achieved remission; C90.02 Multiple myeloma in relapse

== ENCOUNTER 2017-11-08 04:11 | Inpatient (IN) | payer OTHER ==
[~2017-11-08] VITALS: Ht 157.5 cm; Wt 86.2 kg
--- NOTE | ~2017-11-08 | EKG ---
[address] [place] [address] ELECTROCARDIOGRAM REPORT Name: SUNIL GARRETTHLEEN Room #: 170-8 ADM IN M.R.#: [id number] Admission: 11/08/17 Attend Phys: Dave Bruno MD Discharge: Date of : 52 Report #: [id number] THIS REPORT FOR: //name// [facility] ED Test Date: 2017-11-08 Test Time: 04:57:28 Pat Name: MELINDA GARRETT Department: Room: 170 Gender: F [employer] Assistant: TON : 1950 Requested By: Umberto Ruvalcaba Order Number: [id number] MD: Yon Gonsalez Measurements Intervals [place] Rate: 103 P: 51 MO: 179 QRS: -3 QRSD: 77 T: 57 QT: 334 QTc: 437 Interpretive Statements Sinus tachycardia Compared to ECG 06/12/2017 10:50:02 heart rate has increased Criteria for septal infarct no longer present Electronically Signed On 11-08-2017 8:42:00 CDT by Yon Gonsalez [email or web address] <ELECTRONICALLY SIGNED> By: Yon Gonsalez MD, [facility] 11/08/17 [id number] Yon Gonsalze MD, [facility] /EPI
[2017-11-08 04:13] VITALS: BP 151/73
[2017-11-08 04:57] LABS: BE(vivo) -0.4 mmol/L (-2 to +3); PCO2 28.2 mmHg (35.0-45.0); PO2 68.4 mmHg (80.0-100.0); sO2 95.5 % (92.0-98.0)
[2017-11-08 05:24] LABS: URINE BILIRUBIN NEGATIVE (Negative); URINE BLOOD 2+ (Negative); URINE CLARITY CLEAR; URINE COLOR YELLOW; URINE GLUCOSE-RANDOM* NEGATIVE (Negative); URINE KETONES TRACE (Negative); URINE LEUKOCYTES-REFLEX NEGATIVE (Negative); URINE NITRITE-REFLEX NEGATIVE (Negative); URINE PROTEIN (DIPSTICK) TRACE (Negative); URINE SPECIFIC GRAVITY 1.025 (1.005-1.035); URINE UROBILINOGEN 0.2 E.U./dl (0.2-1.0)
[2017-11-08 05:32] LABS: AMP/METHAMP Negative (Negative); BARBITURATES Negative (Negative); BENZODIAZEPINES Negative (Negative); COCAINE Negative (Negative); METHADONE Negative (Negative); OPIATES Negative (Negative); PCP Negative (Negative)
[2017-11-08 05:43] LABS: CASTS None Seen /LPF (None Seen); CRYSTALS None Seen /LPF (None Seen); MUCUS None Seen strn/LPF (None Seen); SQUAMOUS 4-10 Moderate /LPF (0-3); URINE RBC 3-10 Few /HPF (0-2); URINE WBC-REFLEX None Seen /HPF (0-5)
[2017-11-08 05:44] LABS: BACTERIA-REFLEX 1-9 Few /HPF (None Seen)
[2017-11-08 06:19] LABS: CALCIUM 9.4 mg/dL (8.5-10.1); CREATININE 0.9 mg/dL (0.6-1.0); POTASSIUM 3.8 mmol/L (3.5-5.1)
[2017-11-08 06:28] LABS: TROPONIN-I 0.09 ng/mL (<0.06)
[2017-11-08 06:29] LABS: ALBUMIN 2.3 g/dL (3.4-5.0); DIRECT BILIRUBIN 0.3 mg/dL (<0.1-0.3); TOTAL BILIRUBIN 0.8 mg/dL (<0.1-1.0); TOTAL PROTEIN 9.2 g/dL (6.4-8.2)
[2017-11-08 06:30] LABS: HEMATOCRIT 27.3 % (37.0-47.0); HEMOGLOBIN 9.3 gm/dL (12.0-15.0); MCH 29.2 pg (26.0-34.0); MCHC 33.9 g/dL (28.0-37.0); RBC 3.17 mil/uL (4.20-5.00); RDW 15.1 % (10.5-14.5); WBC 7.8 thou/uL (4.0-11.0)
[2017-11-08] MEDS ORDERED: OXYCODONE HCL 55 MG PO (09:04)
[2017-11-08] MEDS ORDERED: DEXAMETHASONE6 MG PO (09:07)
[2017-11-08 11:07] VITALS: BP 141/75
[2017-11-08 15:13] VITALS: BP 129/68
[2017-11-08] MEDS ORDERED: REQUIP 1 MG TABL1 M1 PO (20:45)
[2017-11-09 04:08] VITALS: BP 137/80
[2017-11-09 07:52] VITALS: BP 132/73
[2017-11-09 11:06] LABS: HEMATOCRIT 23.5 % (37.0-47.0); MCH 29.5 pg (26.0-34.0); MCHC 33.9 g/dL (28.0-37.0); MCV 87.1 fL (80.0-100.0); RDW 15.3 % (10.5-14.5); WBC 4.4 thou/uL (4.0-11.0)
[2017-11-09 11:14] LABS: CALCIUM 9.5 mg/dL (8.5-10.1); CREATININE 0.8 mg/dL (0.6-1.0); POTASSIUM 3.4 mmol/L (3.5-5.1)
[2017-11-09 12:26] LABS: ABSOLUTE NEUTROPHILS 3.8 thou/uL (1.4-8.2); METAMYELOCYTES 1 %; NUCLEATED RBCS 1 /100WBC; PLATELET COUNT 68 thou/uL (150-400); PLATELET ESTIMATE SLIGHTLY DECREASED
[2017-11-09 12:27] LABS: LARGE PLATELETS MANY
[2017-11-09 15:35] VITALS: BP 132/73
[2017-11-09 16:23] VITALS: BP 142/83
[2017-11-09 20:54] VITALS: BP 153/89
[2017-11-10 03:51] VITALS: BP 147/90
[2017-11-10 05:45] LABS: HEMATOCRIT 23.5 % (37.0-47.0); HEMOGLOBIN 8.1 gm/dL (12.0-15.0); MCH 29.9 pg (26.0-34.0); MCHC 34.3 g/dL (28.0-37.0); MCV 87.3 fL (80.0-100.0); RBC 2.69 mil/uL (4.20-5.00); RDW 15.7 % (10.5-14.5); WBC 5.2 thou/uL (4.0-11.0)
[2017-11-10 05:57] LABS: CALCIUM 9.5 mg/dL (8.5-10.1); CREATININE 0.9 mg/dL (0.6-1.0); POTASSIUM 3.7 mmol/L (3.5-5.1)
[2017-11-10 08:00] VITALS: BP 154/65
== END 2017-11-10 15:30 | disposition hospice, home (50) | DRG 871 ==
LOC: ER 04:11 → 4W 06:42 → EROBS 06:42 → 4W 11:30
PROVIDERS: Emergency Medicine; Hospitalist
DX: A41.9 Sepsis, unspecified organism (principal); J96.01 Acute respiratory failure with hypoxia; J18.9 Pneumonia, unspecified organism; E87.1 Hypo-osmolality and hyponatremia; C90.00 Multiple myeloma not having achieved remission; E46 Unspecified protein-calorie malnutrition; G89.4 Chronic pain syndrome; E55.9 Vitamin D deficiency, unspecified; D64.9 Anemia, unspecified; Z66 Do not resuscitate; G25.81 Restless legs syndrome; R31.9 Hematuria, unspecified; K21.9 Gastro-esophageal reflux disease without esophagitis; M19.90 Unspecified osteoarthritis, unspecified site; Z92.21 Personal history of antineoplastic chemotherapy; Z88.1 Allergy status to other antibiotic agents; Z88.0 Allergy status to penicillin; Z88.2 Allergy status to sulfonamides; Z88.8 Allergy status to other drugs, medicaments and biological substances; Z68.34 Body mass index [BMI] 34.0-34.9, adult; Z86.711 Personal history of pulmonary embolism; Z79.01 Long term (current) use of anticoagulants; Z79.899 Other long term (current) drug therapy
CPT/HCPCS: 10045